=== PATIENT | male | born 1950 | race Asian ===

== ENCOUNTER 2016-12-02 00:50 | Emergency (ER) | payer OTHER ==
[~2016-12-02] VITALS: Ht 162.6 cm; Wt 68.0 kg
[~2016-12-02 00:50] MED LIST: ASPIRIN325 PO; CHILDREN'S CLARI5 MG; DIGOXIN125 MCG PO; FISH OIL 1,0001 EAC5; HYDROCHLOROTHIA25 M2; LISINOPRIL10 MG; MECLIZINE 25 MG25 M1 PO; MULTIVITAMINS1 EAC7; POTASSIUM20 PO; PRILOSEC40 MG; SIMVASTATIN40 MG; VITCB500GO
[2016-12-02 00:51] VITALS: BP 159/104
[2016-12-02] MEDS ORDERED: XARELTO20 MG PO (01:08)
[2016-12-02] MEDS ORDERED: NEXIUM40 MG PO (06:06)
[2016-12-02] MEDS ORDERED: LANOXIN 0.120.125 M3 PO (09:12)
[2016-12-02] MEDS ORDERED: POTASSIUM20 PO (09:12)
[2016-12-02] MEDS ORDERED: MOVE FREE JOIN1 EACH PO (09:13)
[2016-12-03] MEDS ORDERED: LISINOPRIL20 MG PO (11:44)
== END 2016-12-02 01:15 | disposition home or self-care (01) ==
LOC: ER 00:50
DX: R04.0 Epistaxis (principal); I10 Essential (primary) hypertension; E78.00 Pure hypercholesterolemia, unspecified; F10.99 Alcohol use, unspecified with unspecified alcohol-induced disorder

== ENCOUNTER 2016-12-02 05:42 | Observation (INO) | payer OTHER ==
[~2016-12-02] VITALS: Ht 162.6 cm; Wt 68.0 kg
--- NOTE | ~2016-12-02 | HC ---
[facility] [place] [address] CONSULTATION Name: GEOVANI REYES Room #: 417-I [facility] [place] Goyal#: [id number] Admission: 12/02/16 Attend Phys: Rosa Elena Valdez MD Discharge: 12/03/16 Date of : 52 Report #: [id number] THIS REPORT FOR: //name// CC: Abisai Valdez DATE OF SERVICE: 12/02/2016 REASON FOR CONSULTATION: Nasal bleeding. HISTORY OF PRESENT ILLNESS: The patient is a 66-year-old male who has had problems with epistaxis over the last 24 hours and had nosebleed that started last evening at 11:00. It lasted for about 30 minutes. He was seen in the emergency room and Rhino Rocket packing was placed. He was discharged home at 04:00 in the morning, but returned with bleeding around the packing. At that time, his blood pressure was basically 160/100. His blood pressure was treated this morning in the ER and he was admitted for observation. PAST MEDICAL HISTORY: Significant for hypertension, high cholesterol and mitral valve prolapse. MEDICATIONS: At home include simvastatin, lisinopril, multivitamin, [place]-3 fish oil, loratadine, omeprazole, hydrochlorothiazide, aspirin, digoxin, potassium and Xarelto. ALLERGIES: None. SOCIAL HISTORY: He does not use tobacco. He does use alcohol. REVIEW OF SYSTEMS: Essentially negative. PHYSICAL EXAMINATION: GENERAL: He is a well-developed male, in no apparent distress, resting comfortably, lying supine with a nasal packing in place on the right side. HEENT: Normocephalic. Pupils are equal and round. Nasal packing in place, with no evidence of active bleeding. Oral cavity, no granulation or ulceration seen. No evidence of bleeding down the posterior pharynx. NECK: No palpable adenopathy. IMPRESSION: Epistaxis, controlled with a Rhino Rocket, with blood pressure now improved. PLAN: He will need to make sure that his blood pressure does not go to 160/100. No amount of packing will stop his bleeding if that is the case. I restarted his lisinopril at this time. He can be discharged after a few hours of observation, making sure that he has adequate ability to maintain his blood [address] [address] CONSULTATION Name: GEOVANI REYES Room #: 417-I [facility] M.R.#: [id number] Admission: 12/02/16 Attend Phys: Rosa Elena Valdez MD Discharge: 12/03/16 Date of : 52 Report #: [id number] pressure in the normal range and lisinopril 20 mg should be adequate. He will withhold his aspirin and Xarelto over the next 3 days. I would like to see him in the office on Saturday to remove his packing at that time. He will also withhold his fish oil this week. <ELECTRONICALLY SIGNED> By: Jun Barbosa MD 01/02/17 1803 [id number] Jun Barbosa MD /fidencio
--- NOTE | ~2016-12-02 | H ---
[facility] [place] [address] HISTORY AND PHYSICAL Name: GEOVANI REYES Room #: 417-I [facility] [place] Goyal#: [id number] Admission: 12/02/16 Attend Phys: Rosa Elena Valdez MD Discharge: 12/03/16 Date of : 52 Report #: [id number] THIS REPORT FOR: //name// CC: Abisai Valdez DATE OF SERVICE: 12/02/2016 PRIMARY DOCTOR: Abisai Elias M.D. CHIEF COMPLAINT: Nose bleed. HISTORY OF PRESENT ILLNESS: The patient is a 66-year-old male with a history of ____ AFib, followed by Dr. Craft, on Xarelto and digoxin, presented to the ER secondary to epistaxis. He indicates that a little before midnight while he was lying in bed, he started feeling dripping from his right nostril. This progressed and became very severe and he indicates that he had more than a cup's worth of bright blood. He came to the ER and was packed and sent home with a Rhino Rocket and referred to ENT. Since his symptoms persisted, he came back into the ER early in the morning. At that time, he was admitted and Dr. Barbosa was consulted. Dr. Barbosa with ENT saw and recommended good blood pressure control, and hold aspirin and Xarelto for now. He will remain inhouse until tomorrow. In the meantime, we will get Cardiology to see him. The patient indicates that he has had issues with this on and off since October. Generally, it occurs once a week. He has had no trauma, infections, nose picking, etc. PAST MEDICAL HISTORY: AFib, on digoxin and chronic anticoagulation; hypertension; dyslipidemia; mitral valve prolapse. MEDICATIONS: Simvastatin, lisinopril, multivitamin, [place]-3 fish oil, Claritin, omeprazole, hydrochlorothiazide, aspirin, digoxin, potassium and Xarelto. SOCIAL HISTORY: Does not smoke or drink. FAMILY HISTORY: Review and noncontributory. ALLERGIES: None. REVIEW OF SYSTEMS: A 14-point review of system was conducted, all negative except for above. PHYSICAL EXAMINATION: VITAL SIGNS: Temperature of 98, pulse is 68, blood pressure is 132/87 and O2 sat of 97% on room air. [address] [address] HISTORY AND PHYSICAL Name: GEOVANI REYES Room #: 417-I [facility] [place] Goyal#: [id number] Admission: 12/02/16 Attend Phys: Rosa Elena Valdez MD Discharge: 12/03/16 Date of : 52 Report #: [id number] GENERAL: He is awake and alert, answering question appropriately, in no acute respiratory distress. HEENT: Normocephalic and atraumatic. Right nasal packing is in place. There is no excessive bleeding. CARDIOVASCULAR: Regular rate and rhythm. No murmurs. LUNGS: Clear to auscultation bilaterally. No crackles or wheezes. ABDOMEN: Soft, no distention or tenderness. EXTREMITIES: No edema. NEUROLOGIC: Nonfocal. LABORATORIES AND TESTING: H and H of 14 and 43. CMP showed no significant abnormalities except for potassium of 3.4. INR is 1.1. ASSESSMENT AND PLAN: 1. Epistaxis in a patient on chronic anticoagulation. The patient currently has his nasal packing in place. ENT is following and recommended holding aspirin, Xarelto and fish oil for at least 3 days, and monitor him overnight. We will get Cardiology to see him, monitor his H and H. 2. Atrial fibrillation, on chronic anticoagulation and digoxin. Resume his digoxin, hold his aspirin and Xarelto. Consult commercial relationship manager ____. 3. Hypertension. Continue his home medications and ensure better control to prevent the above from recurring. 4. Dyslipidemia. Continue same. 5. Deep venous thrombosis prophylaxis, sequential compression devices. <ELECTRONICALLY SIGNED> By: Rosa Elena Valdez MD 12/25/162009 1145 1321 Rosa Elena Valdez MD /nt
--- NOTE | ~2016-12-02 | HC ---
[facility] [place] [address] CONSULTATION Name: GEOVANI REYES Room #: 417-I [facility] [place] Goyal#: [id number] Admission: 12/02/16 Attend Phys: Rosa Elena Valdez MD Discharge: Date of : 52 Report #: [id number] THIS REPORT FOR: //name// CC: Abisai Valdez DATE OF SERVICE: 12/02/2016 INDICATION: Arrhythmia/epistaxis. HISTORY OF PRESENT ILLNESS: This is a 66-year-old gentleman with a history of paroxysmal atrial fibrillation, severe mitral regurgitation, presenting with epistaxis. He started bleeding in his nose last night and presented to the ER. He underwent placement of a Rhino Rocket packing by ENT. He went home, but had recurrent bleed and was admitted to the hospital today. The patient reports having intermittent episodes of epistaxis last month. He has been on Xarelto for the past 2 years for paroxysmal atrial fibrillation. There is no history of chest pains, shortness of breath, dizziness, or congestion. He denies any recent fever or chills. PAST MEDICAL HISTORY: Known to have severe mitral regurgitation, paroxysmal atrial fibrillation, hypertension, and hypercholesterolemia. MEDICATIONS: Simvastatin, lisinopril, hydrochlorothiazide, aspirin, digoxin, potassium and Xarelto. ALLERGIES: None. SOCIAL HISTORY: Former tobacco smoker. FAMILY HISTORY: Negative for premature CAD. REVIEW OF SYSTEMS: A full 10-point review of systems performed. Only the pertinent positives and negatives are described in the HPI. PHYSICAL EXAMINATION: VITAL SIGNS: Blood pressure is 140/70, heart rate is 65 beats per minute. GENERAL APPEARANCE: This is a well-developed, well-nourished male, in no acute respiratory distress. HEAD AND EYES: Normocephalic. Sclerae are anicteric. ENT: Oral mucosa moist. NECK: Supple. LUNGS: Clear to auscultation. CARDIAC: Regular rate and rhythm, S1, S2 positive. ABDOMEN: Soft. EXTREMITIES: No major joint deformities. [facility] [address] [place] [address] CONSULTATION Name: GEOVANI REYES [facility] [place].#: [id number] Admission: 12/02/16 Attend Phys: Rosa Elena Valdez MD Discharge: Date of : 52 Report #: [id number] NEUROLOGIC: Alert and oriented x3. LABORATORY VALUES: White count is 5.9, hemoglobin is 14.5. Sodium is 141, creatinine is 1.1. ASSESSMENT: 1. Epistaxis. The bleeding has stopped with a packing placed by the emergency room physician. We would hold anticoagulation therapy at this time. He will need an ENT followup. 2. Paroxysmal atrial fibrillation, the monitor reveals sinus rhythm with episodes of paroxysmal atrial flutter. Continue medications including digoxin. We will defer the question of long-term anticoagulation until this episode of epistaxis has been treated and resolved. 3. Severe mitral regurgitation, clinically stable at this time; however, will need eventual correction in the near future. We will have Dr. Craft see the patient in the morning. 4. Hypertension, continue with medications. 5. Hypercholesterolemia. Thank you for allowing me to participate in the care of your patient. <ELECTRONICALLY SIGNED> By: Thaddeus Adrian MD 12/03/16 0738 1724 [id number] Thaddeus Adrian MD /nt
[2016-12-02 05:42] VITALS: BP 160/96
[~2016-12-02 05:42] MED LIST changes: +XARELTO20 MG PO
[2016-12-02 06:00] LABS: ABSOLUTE NEUTROPHILS 3.8 thou/uL (1.4-8.2); BASOPHILS 1.3 % (0.0-2.0); EOSINOPHILS 3.4 % (0.0-3.0); HEMATOCRIT 43.7 % (42.0-52.0); HEMOGLOBIN 14.5 gm/dL (14.0-18.0); LYMPHOCYTES 23.4 % (24.0-44.0); MCH 29.8 pg (26.0-34.0); MCHC 33.2 % (28.0-37.0); MCV 89.8 fL (80.0-100.0); MONOCYTES 7.4 % (1.0-8.0); PLATELET COUNT 157 thou/uL (150-400); POLYS 64.5 % (36.0-66.0); RBC 4.87 mil/uL (4.50-6.00); RDW 13.5 % (10.5-14.5); WBC 5.9 thou/uL (4.0-11.0)
[2016-12-02] MEDS ORDERED: NEXIUM40 MG PO (06:06)
[2016-12-02 06:09] LABS: MANUAL DIFF NO
[2016-12-02 06:11] LABS: INR 1.1; PROTIME 11.4 Seconds (9.3-11.4)
[2016-12-02 06:13] LABS: CREATININE 1.1 mg/dL (0.6-1.3); POTASSIUM 3.4 mmol/L (3.5-5.1)
[2016-12-02 06:20] LABS: ALBUMIN 3.6 g/dL (3.4-5.0); TOTAL BILIRUBIN 0.3 mg/dL (<0.1-1.0); TOTAL PROTEIN 7.9 g/dL (6.4-8.2)
[2016-12-02 08:12] VITALS: BP 138/58
[2016-12-02 08:37] VITALS: BP 132/87
[2016-12-02] MEDS ORDERED: POTASSIUM20 PO (09:12)
[2016-12-02] MEDS ORDERED: LANOXIN 0.120.125 M3 PO (09:12)
[2016-12-02] MEDS ORDERED: MOVE FREE JOIN1 EACH PO (09:13)
[2016-12-02 12:04] VITALS: BP 145/92
[2016-12-02 15:39] VITALS: BP 141/98
[2016-12-02 20:00] VITALS: BP 147/100
[2016-12-03 04:00] VITALS: BP 144/72
[2016-12-03 05:41] LABS: ABSOLUTE NEUTROPHILS 4.8 thou/uL (1.4-8.2); HEMOGLOBIN 13.7 gm/dL (14.0-18.0)
[2016-12-03 05:43] LABS: BASOPHILS 1.3 % (0.0-2.0); HEMATOCRIT 40.9 % (42.0-52.0); LYMPHOCYTES 22.4 % (24.0-44.0); MCH 29.7 pg (26.0-34.0); MCHC 33.5 % (28.0-37.0); MCV 88.7 fL (80.0-100.0); PLATELET COUNT 148 thou/uL (150-400); POLYS 65.3 % (36.0-66.0); RBC 4.61 mil/uL (4.50-6.00); RDW 13.4 % (10.5-14.5); WBC 7.3 thou/uL (4.0-11.0)
[2016-12-03 05:45] LABS: MANUAL DIFF NO
[2016-12-03 07:34] VITALS: BP 143/84
[2016-12-03] MEDS ORDERED: LISINOPRIL20 MG PO (11:44)
[2016-12-03 12:15] VITALS: BP 143/84
== END 2016-12-03 15:40 | disposition home or self-care (01) ==
LOC: ER 05:42 → EROBS 06:12 → 4E 06:12
PROVIDERS: Emergency Medicine; Family Medicine
DX: R04.0 Epistaxis (principal); I48.0 Paroxysmal atrial fibrillation; I10 Essential (primary) hypertension; E78.5 Hyperlipidemia, unspecified; D68.59 Other primary thrombophilia; F72 Severe intellectual disabilities; Z79.899 Other long term (current) drug therapy; Z79.82 Long term (current) use of aspirin; I82.409 Acute embolism and thrombosis of unspecified deep veins of unspecified lower extremity

== ENCOUNTER → 2019-11-30 | Outpatient (CLI) | payer OTHER ==
[~2019-11-30] MED LIST changes: +LANOXIN 0.120.125 M3 PO; +LISINOPRIL20 MG PO; +MOVE FREE JOIN1 EACH PO; +NEXIUM40 MG PO
== END ==
LOC: SJCVCIMAG 09:43
DX: I36.1 Nonrheumatic tricuspid (valve) insufficiency (principal); I11.9 Hypertensive heart disease without heart failure; I48.0 Paroxysmal atrial fibrillation; I25.10 Atherosclerotic heart disease of native coronary artery without angina pectoris; E78.00 Pure hypercholesterolemia, unspecified; Z95.1 Presence of aortocoronary bypass graft; Z79.01 Long term (current) use of anticoagulants; Z90.89 Acquired absence of other organs; Z95.3 Presence of xenogenic heart valve; Z79.82 Long term (current) use of aspirin; Z79.891 Long term (current) use of opiate analgesic; Z79.899 Other long term (current) drug therapy

== ENCOUNTER → 2019-12-07 | Outpatient (CLI) | payer OTHER | LOC: SJCVC 09:05 | DX: Z51.81 Encounter for therapeutic drug level monitoring (principal); I48.0 Paroxysmal atrial fibrillation; I25.10 Atherosclerotic heart disease of native coronary artery without angina pectoris; I50.33 Acute on chronic diastolic (congestive) heart failure; I11.0 Hypertensive heart disease with heart failure; E78.5 Hyperlipidemia, unspecified; Z95.1 Presence of aortocoronary bypass graft; Z95.2 Presence of prosthetic heart valve; Z79.01 Long term (current) use of anticoagulants ==

== ENCOUNTER → 2019-12-21 | Outpatient (CLI) | payer OTHER | LOC: SJCVC 09:03 | DX: Z51.81 Encounter for therapeutic drug level monitoring (principal); I48.0 Paroxysmal atrial fibrillation; I25.10 Atherosclerotic heart disease of native coronary artery without angina pectoris; I11.0 Hypertensive heart disease with heart failure; I50.32 Chronic diastolic (congestive) heart failure; Z95.1 Presence of aortocoronary bypass graft; Z79.01 Long term (current) use of anticoagulants ==

== ENCOUNTER → 2019-12-29 | Outpatient (CLI) | payer OTHER | LOC: SJCVC 11:00 | DX: Z51.81 Encounter for therapeutic drug level monitoring (principal); I11.0 Hypertensive heart disease with heart failure; I50.33 Acute on chronic diastolic (congestive) heart failure; E78.5 Hyperlipidemia, unspecified; I48.0 Paroxysmal atrial fibrillation; Z79.01 Long term (current) use of anticoagulants ==

== ENCOUNTER → 2020-01-13 | Outpatient (CLI) | payer OTHER | LOC: SJCVC 08:57 | DX: Z51.81 Encounter for therapeutic drug level monitoring (principal); I25.10 Atherosclerotic heart disease of native coronary artery without angina pectoris; I48.0 Paroxysmal atrial fibrillation; E78.5 Hyperlipidemia, unspecified; I11.0 Hypertensive heart disease with heart failure; I50.33 Acute on chronic diastolic (congestive) heart failure; Z79.01 Long term (current) use of anticoagulants; Z95.5 Presence of coronary angioplasty implant and graft ==

== ENCOUNTER → 2020-01-14 | Outpatient (CLI) | payer OTHER | LOC: SJCVC 09:57 | DX: Z51.81 Encounter for therapeutic drug level monitoring (principal); E78.5 Hyperlipidemia, unspecified; I48.0 Paroxysmal atrial fibrillation; I11.0 Hypertensive heart disease with heart failure; I50.33 Acute on chronic diastolic (congestive) heart failure; Z95.5 Presence of coronary angioplasty implant and graft; Z79.01 Long term (current) use of anticoagulants ==

== ENCOUNTER → 2020-01-20 | Outpatient (CLI) | payer OTHER | LOC: SJCVC 09:01 | DX: Z51.81 Encounter for therapeutic drug level monitoring (principal); I25.10 Atherosclerotic heart disease of native coronary artery without angina pectoris; E78.5 Hyperlipidemia, unspecified; I48.0 Paroxysmal atrial fibrillation; I11.0 Hypertensive heart disease with heart failure; I50.33 Acute on chronic diastolic (congestive) heart failure; Z79.01 Long term (current) use of anticoagulants ==

== ENCOUNTER → 2020-01-27 | Outpatient (CLI) | payer OTHER | LOC: SJCVC 14:30 | DX: Z51.81 Encounter for therapeutic drug level monitoring (principal); I48.0 Paroxysmal atrial fibrillation; I11.0 Hypertensive heart disease with heart failure; I50.32 Chronic diastolic (congestive) heart failure; I25.10 Atherosclerotic heart disease of native coronary artery without angina pectoris; Z95.1 Presence of aortocoronary bypass graft; Z79.01 Long term (current) use of anticoagulants ==

== ENCOUNTER → 2020-02-24 | Outpatient (CLI) | payer OTHER | LOC: SJCVC 09:29 | DX: Z51.81 Encounter for therapeutic drug level monitoring (principal); I48.0 Paroxysmal atrial fibrillation; I11.0 Hypertensive heart disease with heart failure; I50.32 Chronic diastolic (congestive) heart failure; E78.5 Hyperlipidemia, unspecified; I25.810 Atherosclerosis of coronary artery bypass graft(s) without angina pectoris; Z95.1 Presence of aortocoronary bypass graft; Z79.01 Long term (current) use of anticoagulants; Z79.82 Long term (current) use of aspirin; Z79.899 Other long term (current) drug therapy ==

== ENCOUNTER → 2020-03-02 | Outpatient (CLI) | payer OTHER | LOC: SJCVC 09:01 | DX: Z51.81 Encounter for therapeutic drug level monitoring (principal); I11.0 Hypertensive heart disease with heart failure; I50.33 Acute on chronic diastolic (congestive) heart failure; Z87.891 Personal history of nicotine dependence; Z79.01 Long term (current) use of anticoagulants ==

== ENCOUNTER → 2020-03-17 | Outpatient (CLI) | payer OTHER | LOC: SJCVC 09:38 | DX: Z51.81 Encounter for therapeutic drug level monitoring (principal); I48.0 Paroxysmal atrial fibrillation; I11.0 Hypertensive heart disease with heart failure; I50.32 Chronic diastolic (congestive) heart failure; I25.810 Atherosclerosis of coronary artery bypass graft(s) without angina pectoris; E78.5 Hyperlipidemia, unspecified; Z95.1 Presence of aortocoronary bypass graft; Z79.01 Long term (current) use of anticoagulants; Z79.82 Long term (current) use of aspirin; Z79.899 Other long term (current) drug therapy ==

== ENCOUNTER → 2020-03-24 | Outpatient (CLI) | payer OTHER | LOC: SJCVC 09:21 | DX: Z51.81 Encounter for therapeutic drug level monitoring (principal); I34.0 Nonrheumatic mitral (valve) insufficiency; Z79.01 Long term (current) use of anticoagulants ==

== ENCOUNTER → 2020-05-06 | Outpatient (CLI) | payer OTHER | LOC: SJCVC 08:52 | PROVIDERS: ATTEND Internal Medicine | DX: Z51.81 Encounter for therapeutic drug level monitoring (principal); I48.0 Paroxysmal atrial fibrillation; I25.10 Atherosclerotic heart disease of native coronary artery without angina pectoris; I11.0 Hypertensive heart disease with heart failure; I50.32 Chronic diastolic (congestive) heart failure; E78.5 Hyperlipidemia, unspecified; Z95.1 Presence of aortocoronary bypass graft; Z79.01 Long term (current) use of anticoagulants ==

== ENCOUNTER → 2020-06-02 | Outpatient (CLI) | payer OTHER | LOC: SJCVC 09:11 | PROVIDERS: ATTEND Internal Medicine | DX: Z51.81 Encounter for therapeutic drug level monitoring (principal); I48.0 Paroxysmal atrial fibrillation; I11.0 Hypertensive heart disease with heart failure; I50.32 Chronic diastolic (congestive) heart failure; I25.10 Atherosclerotic heart disease of native coronary artery without angina pectoris; E78.5 Hyperlipidemia, unspecified; Z95.2 Presence of prosthetic heart valve; Z95.1 Presence of aortocoronary bypass graft; Z79.01 Long term (current) use of anticoagulants; Z79.899 Other long term (current) drug therapy ==

== ENCOUNTER → 2020-06-30 | Outpatient (CLI) | payer OTHER | LOC: SJCVC 09:08 | PROVIDERS: ATTEND Internal Medicine | DX: Z51.81 Encounter for therapeutic drug level monitoring (principal); I48.0 Paroxysmal atrial fibrillation; I11.0 Hypertensive heart disease with heart failure; I50.32 Chronic diastolic (congestive) heart failure; E78.5 Hyperlipidemia, unspecified; I25.810 Atherosclerosis of coronary artery bypass graft(s) without angina pectoris; Z79.01 Long term (current) use of anticoagulants; Z95.1 Presence of aortocoronary bypass graft; Z79.82 Long term (current) use of aspirin; Z79.899 Other long term (current) drug therapy ==

== ENCOUNTER → 2020-07-21 | Outpatient (CLI) | payer OTHER | LOC: SJCVC 09:00 | PROVIDERS: ATTEND Internal Medicine | DX: Z51.81 Encounter for therapeutic drug level monitoring (principal); I10 Essential (primary) hypertension; E78.00 Pure hypercholesterolemia, unspecified; Z79.01 Long term (current) use of anticoagulants; Z95.1 Presence of aortocoronary bypass graft ==

== ENCOUNTER → 2020-07-28 | Outpatient (CLI) | payer OTHER | LOC: SJCVC 09:03 | PROVIDERS: ATTEND Internal Medicine | DX: Z51.81 Encounter for therapeutic drug level monitoring (principal); I48.91 Unspecified atrial fibrillation; E78.00 Pure hypercholesterolemia, unspecified; Z79.01 Long term (current) use of anticoagulants ==

== ENCOUNTER → 2020-08-04 | Outpatient (CLI) | payer OTHER | LOC: SJCVC 09:12 | PROVIDERS: ATTEND Internal Medicine | DX: Z51.81 Encounter for therapeutic drug level monitoring (principal); I48.91 Unspecified atrial fibrillation; I10 Essential (primary) hypertension; E78.00 Pure hypercholesterolemia, unspecified; K21.9 Gastro-esophageal reflux disease without esophagitis; I34.0 Nonrheumatic mitral (valve) insufficiency; Z95.1 Presence of aortocoronary bypass graft; Z79.01 Long term (current) use of anticoagulants; Z87.891 Personal history of nicotine dependence ==

== ENCOUNTER → 2020-08-11 | Outpatient (CLI) | payer OTHER | LOC: SJCVC 09:05 | PROVIDERS: ATTEND Internal Medicine | DX: Z51.81 Encounter for therapeutic drug level monitoring (principal); Z87.891 Personal history of nicotine dependence; Z79.01 Long term (current) use of anticoagulants ==

== ENCOUNTER → 2020-08-25 | Outpatient (CLI) | payer OTHER | LOC: SJCVC 09:12 | PROVIDERS: ATTEND Internal Medicine | DX: Z51.81 Encounter for therapeutic drug level monitoring (principal); Z79.01 Long term (current) use of anticoagulants ==

== ENCOUNTER → 2020-09-01 | Outpatient (CLI) | payer OTHER | LOC: SJCVC 12:20 | PROVIDERS: ATTEND Internal Medicine | DX: Z51.81 Encounter for therapeutic drug level monitoring (principal); I48.0 Paroxysmal atrial fibrillation; I25.10 Atherosclerotic heart disease of native coronary artery without angina pectoris; I10 Essential (primary) hypertension; E78.5 Hyperlipidemia, unspecified; Z95.1 Presence of aortocoronary bypass graft; Z95.2 Presence of prosthetic heart valve; Z79.01 Long term (current) use of anticoagulants; Z79.899 Other long term (current) drug therapy ==

== ENCOUNTER → 2020-09-15 | Outpatient (CLI) | payer OTHER | LOC: SJCVC 09:04 | PROVIDERS: ATTEND Internal Medicine | DX: Z51.81 Encounter for therapeutic drug level monitoring (principal); I48.0 Paroxysmal atrial fibrillation; I25.10 Atherosclerotic heart disease of native coronary artery without angina pectoris; I11.0 Hypertensive heart disease with heart failure; I50.32 Chronic diastolic (congestive) heart failure; E78.5 Hyperlipidemia, unspecified; Z95.2 Presence of prosthetic heart valve; Z95.1 Presence of aortocoronary bypass graft; Z79.01 Long term (current) use of anticoagulants; Z79.899 Other long term (current) drug therapy ==

== ENCOUNTER → 2020-10-12 | Outpatient (CLI) | payer OTHER | LOC: SJCVC 09:01 | PROVIDERS: ATTEND Internal Medicine | DX: Z51.81 Encounter for therapeutic drug level monitoring (principal); Z79.01 Long term (current) use of anticoagulants ==

== ENCOUNTER → 2020-11-10 | Outpatient (CLI) | payer OTHER | LOC: SJCVC 08:53 | PROVIDERS: ATTEND Internal Medicine | DX: Z51.81 Encounter for therapeutic drug level monitoring (principal); I25.10 Atherosclerotic heart disease of native coronary artery without angina pectoris; R48.0 Dyslexia and alexia; I11.0 Hypertensive heart disease with heart failure; I50.32 Chronic diastolic (congestive) heart failure; E78.5 Hyperlipidemia, unspecified; Z95.1 Presence of aortocoronary bypass graft; Z79.01 Long term (current) use of anticoagulants ==

== ENCOUNTER → 2020-12-02 | Outpatient (CLI) | payer OTHER | LOC: SJCVC 10:55 | PROVIDERS: ATTEND Internal Medicine | DX: R00.1 Bradycardia, unspecified (principal); I25.10 Atherosclerotic heart disease of native coronary artery without angina pectoris; I48.0 Paroxysmal atrial fibrillation; E78.5 Hyperlipidemia, unspecified; D68.59 Other primary thrombophilia; Z79.01 Long term (current) use of anticoagulants; E78.00 Pure hypercholesterolemia, unspecified; Z79.82 Long term (current) use of aspirin; Z79.899 Other long term (current) drug therapy; Z87.891 Personal history of nicotine dependence; Z72.89 Other problems related to lifestyle; Z95.3 Presence of xenogenic heart valve; Z95.1 Presence of aortocoronary bypass graft ==

== ENCOUNTER → 2021-01-09 | Outpatient (CLI) | payer OTHER | LOC: SJCVC 11:54 | PROVIDERS: ATTEND Internal Medicine | DX: Z51.81 Encounter for therapeutic drug level monitoring (principal); Z79.01 Long term (current) use of anticoagulants ==

== ENCOUNTER → 2021-02-06 | Outpatient (CLI) | payer OTHER | LOC: SJCVC 08:58 | PROVIDERS: ATTEND Internal Medicine | DX: Z51.81 Encounter for therapeutic drug level monitoring (principal); Z79.01 Long term (current) use of anticoagulants; Z79.82 Long term (current) use of aspirin; Z79.899 Other long term (current) drug therapy ==

== ENCOUNTER 2021-06-02 11:52 | Emergency (ER) | payer OTHER ==
[~2021-06-02] VITALS: Ht 162.6 cm; Wt 68.0 kg
[2021-06-02 13:39] LABS: HEMATOCRIT 37.5 % (42.0-52.0); HEMOGLOBIN 12.5 gm/dL (14.0-18.0); MCH 30.7 pg (26.0-34.0); MCHC 33.4 g/dL (28.0-37.0); MCV 92.1 fL (80.0-100.0); RBC 4.08 mil/uL (4.50-6.00); RDW 13.8 % (10.5-14.5); WBC 4.8 thou/uL (4.0-11.0)
[2021-06-02 13:54] LABS: INR 3.84; PROTIME 39.3 Seconds (10.5-12.1)
[2021-06-02 14:00] VITALS: BP 141/79
== END 2021-06-02 14:59 | disposition home or self-care (01) ==
LOC: ER 11:52
PROVIDERS: Nurse Practitioner Family
DX: M70.51 Other bursitis of knee, right knee (principal); Y93.89 Activity, other specified

== ENCOUNTER → 2021-06-15 | Outpatient (CLI) | payer OTHER | LOC: SJCVCIMAG 08:01 | PROVIDERS: ATTEND Internal Medicine | DX: I65.23 Occlusion and stenosis of bilateral carotid arteries (principal); I08.2 Rheumatic disorders of both aortic and tricuspid valves; I11.9 Hypertensive heart disease without heart failure; R94.31 Abnormal electrocardiogram [ECG] [EKG]; I48.0 Paroxysmal atrial fibrillation; E78.5 Hyperlipidemia, unspecified; D68.59 Other primary thrombophilia; E78.00 Pure hypercholesterolemia, unspecified; Z95.3 Presence of xenogenic heart valve; Z95.1 Presence of aortocoronary bypass graft; Z79.82 Long term (current) use of aspirin; Z79.01 Long term (current) use of anticoagulants; Z79.899 Other long term (current) drug therapy; Z87.891 Personal history of nicotine dependence ==

== ENCOUNTER → 2021-12-18 | Outpatient (CLI) | payer OTHER | LOC: SJCVC 10:25 | PROVIDERS: ATTEND Internal Medicine | DX: R00.1 Bradycardia, unspecified (principal); I25.10 Atherosclerotic heart disease of native coronary artery without angina pectoris; I48.0 Paroxysmal atrial fibrillation; E78.5 Hyperlipidemia, unspecified; D68.59 Other primary thrombophilia; I65.23 Occlusion and stenosis of bilateral carotid arteries; K21.9 Gastro-esophageal reflux disease without esophagitis; E78.00 Pure hypercholesterolemia, unspecified; I10 Essential (primary) hypertension; Z95.1 Presence of aortocoronary bypass graft; Z79.01 Long term (current) use of anticoagulants; Z95.3 Presence of xenogenic heart valve; Z87.891 Personal history of nicotine dependence; Z72.89 Other problems related to lifestyle; Z79.82 Long term (current) use of aspirin; Z79.899 Other long term (current) drug therapy ==